=== PATIENT | female | born 1960 | race Caucasian/White ===

== ENCOUNTER 2024-06-05 10:42 | Outpatient (CLI) | payer OTHER | END 2024-06-05 10:45 | disposition home or self-care (01) | LOC: SONOGRAMA 10:42 | PROVIDERS: ATTEND Pathology Anatomic Pathology & Clinical Pathology | DX: R59.0 Localized enlarged lymph nodes (principal) ==

== ENCOUNTER 2024-07-10 08:58 | Outpatient (CLI) | payer OTHER | END 2024-07-10 08:59 | disposition home or self-care (01) | LOC: NUCLEAR 08:58 | PROVIDERS: ATTEND Internal Medicine | DX: R00.0 Tachycardia, unspecified (principal); R00.1 Bradycardia, unspecified ==

== ENCOUNTER 2024-08-11 07:24 | Outpatient (CLI) | payer OTHER | END 2024-08-11 07:26 | disposition home or self-care (01) | LOC: NUCLEAR 07:24 | PROVIDERS: ATTEND Internal Medicine | DX: I20.9 Angina pectoris, unspecified (principal) | CPT/HCPCS: 78452; 93017; A9500 ==

== ENCOUNTER 2025-07-09 13:50 | Outpatient (CLI) | payer OTHER | END 2025-07-09 13:51 | disposition home or self-care (01) | LOC: NUCLEAR 13:50 | PROVIDERS: ATTEND Internal Medicine | DX: I82.402 Acute embolism and thrombosis of unspecified deep veins of left lower extremity (principal); D68.62 Lupus anticoagulant syndrome; I87.2 Venous insufficiency (chronic) (peripheral) ==